=== PATIENT | female | born 1960 | race Caucasian/White ===

== ENCOUNTER 2019-04-25 00:49 | Outpatient (CLI) | payer BC, SELFPAY ==
--- NOTE | 2019-04-25 11:47 | DI.MAMMO_ITS ---
SYMPTOMS/DIAGNOSIS: SCREENING, Z12.31 MAMMOGRAMS: Mammograms were interpreted according to the usual protocol including computer analysis with CAD system, tomosynthesis and C view imaging. The breast tissue is heterogeneously radiodense, which lowers the sensitivity of the study. There is no dominant mass. There are no suspicious calcifications and there has been no significant interval change when compared with prior images. SUMMARY: No evidence of malignancy, category 1. Yearly screening mammography is recommended. Breast density category C. MQSA ASSESSMENT OF FINDINGS: Negative. Category 1. Patient will receive a letter notifying them of these results. Bi-RADS category C. The breasts are heterogeneously dense, which may obscure small masses.
== END 2019-04-25 01:09 ==
PROVIDERS: PCP Family Medicine; Visit Provider Family Medicine
DX: Z12.31 Encounter for screening mammogram for malignant neoplasm of breast (principal)
CPT/HCPCS: 77063; 77067

== ENCOUNTER 2020-01-30 02:20 | Outpatient (CLI) | payer BC, SELFPAY ==
[2020-01-30 09:47] LABS: Hemoglobin A1C 5.5 % (3.8-5.6)
[2020-01-30 13:41] LABS: Calculated LDL 116 mg/dL (<100); Cholesterol 212 mg/dL (<200); HDL Cholesterol 90 mg/dL (40-60); Triglyceride 30 mg/dL (<150)
== END 2020-01-30 02:40 ==
PROVIDERS: PCP Family Medicine; Visit Provider Family Medicine
DX: Z00.00 Encounter for general adult medical examination without abnormal findings (principal); E11.9 Type 2 diabetes mellitus without complications
CPT/HCPCS: 36415; 80061; 83036

== ENCOUNTER 2020-04-21 08:07 | Outpatient (CLI) | payer BC, SELFPAY ==
[2020-04-23 13:56] LABS: SARS-CoV-2 RNA Undetected (Undetected); SARS-CoV-2 Specimen Source Nasopharynx
== END 2020-04-21 08:27 ==
PROVIDERS: PCP Family Medicine; Visit Provider Family Medicine
DX: Z11.59 Encounter for screening for other viral diseases (principal)
CPT/HCPCS: U0003

== ENCOUNTER 2020-08-08 01:45 | Outpatient (CLI) | payer BC, SELFPAY ==
[2020-08-10 09:25] LABS: SARS-CoV-2 RNA Source Nasal/Nares
[2020-08-10 09:26] LABS: SARS-CoV-2 RNA Not Detected (NotDetected)
== END 2020-08-08 02:05 ==
PROVIDERS: PCP Family Medicine; Visit Provider Surgery
DX: Z11.59 Encounter for screening for other viral diseases (principal); Z01.818 Encounter for other preprocedural examination
CPT/HCPCS: U0003

== ENCOUNTER 2020-08-13 07:16 | Day surgery (SDC) | payer BC, SELFPAY ==
--- NOTE | 2020-08-13 07:12 | COLE_ITS ---
Date of service: 08/13/20 Time of Service: 09:10 Colonoscopy Report Date of procedure: 08/13/20 Pre-op diagnosis general: Colon Cancer Screening and family history Post-op diagnosis procedure note: other (polyp) Procedure: Colonoscopy with polypectomy Surgeon: Valencia Bauer Anesthesia proc note operative: other (General/ASA 2/Pina Mendes CRNA) Estimated blood loss (mL): 2 Pathology: other (Transverse polyp) Complications: None Disposition: same day Indications: The patient is here for Colonoscopy pre-op. She has a family history of colon cancer in her mother. She has not had any bowel habit changes. -Discussed colonoscopy bowel prep as well as the procedure. Discussed possible complications of the procedure to include bleeding, pain, perforation, missed small lesion/polyp, sore throat, aspiration and adverse reaction to the medications. Questions were answered to patient?s satisfaction. No guarantees were implied or given. Prep: Miralax/Dulcolax Procedure Start Time: 09:10 Procedure End Time: 09:32 Retraction Time: 16 minutes Findings: One small sessile polyp Procedure Description: After informed consent was obtained the patient was taken to the procedure room and placed in a left decubitous position. Monitors were applied and a time out was done. The patients name, date of , procedure, allergies to medications and metal in their body was reviewed. The patient was then sedated. Once sedated and comfortable a rectal exam was done. External exam was normal. Internal exam revealed a normal sphincter tone and no palpable masses. The scope was then introduced and retro-flexed. No internal hemorrhoids were identified. The scope was then advanced to the cecum without difficulty. The ileocecal valve and appendiceal orifice were identified. The prep was good. The scope was then slowly retracted over 16 minutes back into the rectum. One polyp was removed with cold forceps in the Transverse colon. The scope was removed and the patient was woken up and taken back to Same day surgery in s table condition. The patient tolerated the procedure well and there were no immediate complications. Follow up: The patient should follow up in 5 years unless they develop changes in bowel habits or other new gastrointestinal complaints.
--- NOTE | 2020-08-13 07:13 | W.PM.DSUDISC ---
Discharge Plan Disposition Patient Disposition: HOME Condition: Good Discharge Details Reason For Visit: colonoscopy Attending Provider: Valencia Bauer Primary Care Provider: Sheryl Lainez Home Meds and New Rx's Prescriptions: Continued cholecalciferol (vitamin D3) [Vitamin D3] 400 UNIT tablet 400 unit PO DAILY RF: 0 magnesium citrate 100 MG tablet 400 mg PO DAILY RF: 0 Zyflamend 1 cap PO DAILY RF: 0 Zyflamend 1 cap PO HS RF: 0 docosahexaenoic acid-epa Capsule 1 cap PO DAILY RF: 0 Discontinued polyethylene glycol 3350 17 gram/dose powder 238 g PO ONCE Qty: 238 RF: 0 bisacodyl [Dulcolax (bisacodyl)] 5 mg tablet,delayed release (DR/EC) 5 mg PO ONCE Qty: 4 RF: 0 Discharge Instructions Additional Instructions: Findings: One small polyp Follow up: depends on final pathology. Most likely 5 years Please call if you develop: fevers >101.5 Nausea or Vomiting Abdominal pain that is not transient DAY SURGERY UNIT POST ENDOSCOPY INSTRUCTIONS 1. Because there will be medication in your system for the next 24 hours, you may feel a little sleepy. Your coordination will be affected. Therefore: a. Do not drive or operate dangerous equipment for 24 hours. b. Do not drink alcohol beverages for 24 hours (not even beer). c. Plan to go home and rest for the day. 2. Generally there are no restrictions on your activity after a day or so has gone by, but you may feel a bit fatigued for a few days. 3 After you arrive home you may have a light meal and return to a normal diet as you can tolerate it without feeling sick to your stomach. 4. After surgery, you may feel pain or discomfort. This should be only transient, but if it persists please contact your doctor. 5. If there are any questions regarding the findings of your procedure, please feel free to contact your doctor. 6. If you are unable to contact your doctor with a problem, contact the hospital at [phone]. 7. Continue all your regular medications unless directed otherwise. I understand the above instructions and have no questions. Signature of Patient or Responsible Adult Escort Date/Time Name of Responsible Adult Escort Signature of Nurse Date/Time Activity:: Activity as Tolerated Diet:: As Tolerated Discharge Orders Discharge Orders: Discharge Order (Routine); Ordered 08/13/20 Ordered By: Valencia Bauer
[2020-08-13 07:28] VITALS: BP 111/72; PULSE 53; RESP 16; TEMP 36.2; O2SAT 98
[2020-08-13] MEDS: Lactated Ringers 1,000 ML 80 ML IV (08:00)
--- NOTE | 2020-08-13 09:27 | BOWEL_PTH ---
PATIENT: Ambar Donaldson LOC: [facility] U#:[id number] AGE/SX: 59/F ROOM: RE08/13/[address]: Valencia Bauer MD : 1960 BED: DIS: 08/13/2020 SPEC #: [id number] RECD: 08/13/20 12:26 STATUS: CARA REQ #: [id number] STEPHEN: 08/13/20 09:[address]: Valencia Bauer DEPT: Surgical Specimen RECD BY: Elinor Byrnes ENTERED: 08/13/20 12:27 SP TYPE: Bowel OTHR DR: Sheryl Lainez MD, DC Tissues: 1 - BIOPSY BOWEL Procedures: GROSS AND MICRO LEVEL 4 Comments: [id number] ([id number] [facility] [place]#)
[2020-08-13 10:13] VITALS: BP 105/62; PULSE 49; RESP 16; TEMP 36.3; O2SAT 100
== END 2020-08-13 10:35 | disposition home or self-care (01) ==
LOC: SUR 07:17
PROVIDERS: PCP Family Medicine; Visit Provider Surgery
PROC: 0DJD8ZZ Inspection of Lower Intestinal Tract, Via Natural or Artificial Opening Endoscopic (ICD-10-PCS; CPT 45378; principal; 2020-08-13 08:30)
DX: Z12.11 Encounter for screening for malignant neoplasm of colon (principal); D12.3 Benign neoplasm of transverse colon; Z80.0 Family history of malignant neoplasm of digestive organs
CPT/HCPCS: 45380; 88305; J2001

== ENCOUNTER 2020-09-02 01:45 | Outpatient (CLI) | payer BC, SELFPAY ==
--- NOTE | 2020-09-02 07:45 | DI.RAD_ITS ---
EXAM: XR SHOULDER RT COMPLETE 2+V CLINICAL HISTORY: RT SHOULDER PAIN,M25.519 TECHNIQUE: COMPARISON: No exams were available for comparison FINDINGS: Five views were obtained. There is slight narrowing of the cartilaginous joint space of the glenohumeral joint. There are mild inferior marginal osteophytes glenoid and humeral head. There are mild hypertrophic degenerative ch anges at the acromioclavicular joint as well. No other significant abnormality seen. IMPRESSION: Degenerative changes of glenohumeral and acromioclavicular joints as described above. RADIATION DOSE DELIVERED: Total DLP Total DLP
== END 2020-09-02 02:05 ==
PROVIDERS: PCP Family Medicine; Visit Provider Family Medicine
DX: M25.511 Pain in right shoulder (principal); M19.011 Primary osteoarthritis, right shoulder
CPT/HCPCS: 73030

== ENCOUNTER 2020-10-20 01:54 | Outpatient (CLI) | payer BC, SELFPAY ==
--- NOTE | 2020-10-20 07:45 | DI.MAMMO_ITS ---
EXAM: MG MAMMO SCREENING CLINICAL HISTORY: screening,Z12.39. TECHNIQUE: Bilateral full field digital CC and MLO mammographic images were obtained with 3D tomosyn thesis and utilizing computer aided detection (CAD). COMPARISON: Prior mammograms dating back to 2011, the most recent being March 2019. Left breast ultr asound performed April 2016 was reviewed. Her sister was diagnosed with premenopausal breast cancer . FINDINGS: Fibroglandular tissue is moderately dense. There are no CAD designations. No new spiculated masses nor malignant-appearing microcalcification groups in either breast. There is no significant architectural distortion nor skin thickening-retraction. IMPRESSION: No radiographic evidence of malignancy. BI-RADS Category 1 - Negative Breast Density - Category C - Heterogeneously dense Breast density Category C or D implies that the patient has dense breast tissue. Dense breast tissue can make it harder to find cancer on a mammogram. Dense breast tissue is also associated with an incr eased risk of breast cancer. This information about the result of the mammogram report was provided to the patient to raise their awareness. Use this report when you speak with the patient about their risks for breast cancer, which includes their family history. At that time, you may recommend additional screening tests (Ultrasoun d or MRI) as these tests may add significant information. A negative radiographic report should not delay biopsy if a dominant or clinically suspicious mass is present. Up to ten percent of cancers are not identified on mammography. A negative report may reinforce clinical impression. Adenosis and dense breasts may obscure an underlying neoplasm. False positive reports average 6 to 10%. Patient will receive a letter notifying them of these results.
== END 2020-10-20 02:14 ==
PROVIDERS: PCP Family Medicine; Visit Provider Family Medicine
DX: Z12.31 Encounter for screening mammogram for malignant neoplasm of breast (principal)
CPT/HCPCS: 77063; 77067

== ENCOUNTER 2021-06-23 01:46 | Outpatient (CLI) | payer BC, SELFPAY ==
--- NOTE | 2021-06-23 07:45 | DI.RAD_ITS ---
Exam(s) XR CHEST 2V PA LATERAL EXAM: XR CHEST 2V PA LATERAL CLINICAL HISTORY: right chest congestion,ASTHMA,J45.909,R09.89 TECHNIQUE: 2D digital imaging was performed of the chest. Two images were obtained. PA and lateral views were obtained. COMPARISON: No exams were available for comparison FINDINGS: MEDIASTINUM: Normal. HEART: Normal. PULMONARY VASCULATURE: Normal. LUNGS: Clear. PLEURAL SPACE: No pleural effusion or pneumothorax. BONE:Within normal limits for the patient's age. There is a mild left convex scoliosis of the lower thoracic and upper lumbar spine. OTHER FINDINGS:Normal. IMPRESSION: No acute pulmonary findings. DATA REPOSITORY: RADIATION DOSE DELIVERED:
== END 2021-06-23 02:06 ==
PROVIDERS: PCP Family Medicine; Visit Provider Family Medicine
DX: J45.909 Unspecified asthma, uncomplicated (principal); R09.89 Other specified symptoms and signs involving the circulatory and respiratory systems
CPT/HCPCS: 71046

== ENCOUNTER → 2022-06-21 01:42 | Outpatient (CLI) | payer BC, SELFPAY ==
--- NOTE | 2022-06-21 14:15 | DI.MAMMO_ITS ---
Exam(s) MAMMO SCREENING EXAM: MAMMO SCREENING CLINICAL HISTORY: screening,z12.39 TECHNIQUE: Mammograms were interpreted according to the usual protocol including computer analysis w [employer] CAD system, tomosynthesis and C-view imaging. COMPARISON: 2012 through 2020 FINDINGS: The breasts are composed of heterogeneously dense fibroglandular densities, Breast Density category C . No suspicious masses or suspicious microcalcifications are seen. No skin thickening or abnormal axillary lymph nodes are seen. There has been no significant change from prior exams. IMPRESSION: BI-RADS Category 1, Negative mammogram. Yearly screening mammography is recommended. Breast Density Category C, heterogeneously Dense. The mammogram demonstrates the patient's breast tissue is dense. Dense breast tissue is very common a nd is not abnormal but dense breast tissue can make it harder to find cancer on a mammogram. Also, de nse breast tissue may increase breast cancer risk. This information about the result of the mammogram report was provided to the patient to raise their awareness. Use this report when you speak with the patient about their risks for breast cancer, which includes their family history. At that time, you may recommend additional screening tests (Ultrasound or MRI) as they might be useful based on their r isk. A negative radiographic report should not delay biopsy if a dominant or clinically suspicious mass is present. Up to ten percent of cancers are not identified on mammography. A negative report may reinforce clinical impression. Adenosis and dense breasts may obscure an underlying neoplasm. False positive reports average 6 to 10%.
== END ==
PROVIDERS: PCP Family Medicine; Visit Provider Family Medicine
DX: Z12.31 Encounter for screening mammogram for malignant neoplasm of breast (principal); R92.8 Other abnormal and inconclusive findings on diagnostic imaging of breast
CPT/HCPCS: 77063; 77067

== ENCOUNTER 2022-06-24 13:27 | Outpatient (REF) | payer BC, SELFPAY ==
--- NOTE | 2022-06-24 10:45 | PAPFT_PTH ---
PATIENT: Ambar Donaldson LOC: [facility] U#:[id number] AGE/SX: 61/F ROOM: RE06/24/[address]: Sheryl Lainez MD, DC : 1960 BED: DIS: 06/24/2022 SPEC #: [id number] RECD: 06/24/22 17:52 STATUS: KATEPrecious REQ #: [id number] STEPHEN: 06/24/22 10:[address]: Sheryl Lainez DEPT: [facility] Cytology RECD BY: Elinor Byrnes Tissues: 1 - CX/ENDOCX FOR PAP SMEARS Procedures: PAP THIN PREP/UVM Screening HPV DNA PROBE Comments: [id number]
== END 2022-06-24 13:28 | disposition home or self-care (01) ==
LOC: LBN 13:27
PROVIDERS: PCP Family Medicine; Visit Provider Family Medicine
DX: Z12.4 Encounter for screening for malignant neoplasm of cervix (principal); Z11.51 Encounter for screening for human papillomavirus (HPV)
CPT/HCPCS: 88142; 87624

== ENCOUNTER → 2023-08-24 01:29 | Outpatient (CLI) | payer BC, SELFPAY ==
--- NOTE | 2023-08-24 08:30 | DI.DEXA_ITS ---
Exam(s) XR DEXA BONE DENSITY W/WO HIRA EXAM: XR DEXA BONE DENSITY W/WO HIRA CLINICAL HISTORY: post menopausal, asymptomatic menopausal state, screening, Z78.0 TECHNIQUE: COMPARISON: No exams were available for comparison FINDINGS: Lateral Spine Image: Unremarkable. No compression deformities identified. Left hip: Total T-Score: -2.3 Total Z-Score: -1.1 T- and Z-scores: Findings are consistent with osteopenia. Lumbar Spine: Total T-Score: -0.8 Total Z-Score: 1.0 T- and Z-scores: Within normal limits. Note is made of osteoporosis in the left forearm with a total T-score of -4.2 and Z-score of -2.6. IMPRESSION: Osteoporosis in the left forearm.
== END ==
PROVIDERS: PCP Family Medicine; Visit Provider Family Medicine
DX: Z78.0 Asymptomatic menopausal state (principal); Z13.820 Encounter for screening for osteoporosis
CPT/HCPCS: 77080

== ENCOUNTER → 2023-08-31 01:17 | Outpatient (CLI) | payer BC, SELFPAY ==
--- NOTE | 2023-08-31 07:30 | DI.MAMMO_ITS ---
Exam(s) MAMMO SCREENING EXAM: MAMMO SCREENING CLINICAL HISTORY: screening,z12.39. TECHNIQUE: Bilateral full field digital CC and MLO mammographic images were obtained with 3D tomosyn thesis and utilizing computer aided detection (CAD). COMPARISON: Prior mammograms were reviewed. FINDINGS: There has been no significant change in the appearance and distribution of the fibroglandular tissue. There are no new spiculated masses nor malignant appearing microcalcification groups. There is no significant architectural distortion nor skin thickening-retraction. IMPRESSION: No radiographic evidence of malignancy. BI-RADS Category 1 - Negative Breast Density - Category C - Heterogeneously dense Breast density Category C or D implies that the patient has dense breast tissue. Dense breast tissue can make it harder to find cancer on a mammogram. Dense breast tissue is also associated with an incr eased risk of breast cancer. This information about the result of the mammogram report was provided to the patient to raise their awareness. Use this report when you speak with the patient about their risks for breast cancer, which includes their family history. At that time, you may recommend additional screening tests (Ultrasoun d or MRI) as these tests may add significant information. A negative radiographic report should not delay biopsy if a dominant or clinically suspicious mass is present. Up to ten percent of cancers are not identified on mammography. A negative report may reinforce clinical impression. Adenosis and dense breasts may obscure an underlying neoplasm. False positive reports average 6 to 10%. Patient will receive a letter notifying them of these results.
== END ==
PROVIDERS: PCP Family Medicine; Visit Provider Family Medicine
DX: Z12.31 Encounter for screening mammogram for malignant neoplasm of breast (principal)
CPT/HCPCS: 77063; 77067

== ENCOUNTER 2023-09-01 04:35 | Outpatient (CLI) | payer BC, SELFPAY ==
[2023-09-01 12:42] LABS: ALT 18 U/L (14-59); AST 32 U/L (15-37); Albumin 3.7 g/dL (3.4-5.0); Alkaline Phosphatase 82 U/L (46-116); Anion Gap 8.4 mmol/L (3-11); BUN 9 mg/dL (7-18); Bilirubin, Total 0.4 mg/dL (0.2-1.0); CO2 28.6 mmol/L (21.0-32.0); CREATININE 0.7 mg/dL (0.55-1.02); Chloride 101 mmol/L (98-107); Estimated GFR 96.52 (mL/min/1.73m2); Glucose 92 mg/dL (74-106); Potassium 3.7 mmol/L (3.5-5.1); Sodium 138 mmol/L (136-145); TSH (W/Ref FT4) 1.81 uIU/mL (0.36-3.74); Total Protein 7.1 g/dL (6.4-8.2)
[2023-09-01 12:55] LABS: Vitamin D 25 Total 53.1 ng/mL (30-100)
[2023-09-01 19:27] LABS: Parathyroid Hormone,Intact 34 pg/mL (19-88)
== END 2023-09-01 04:36 | disposition home or self-care (01) ==
LOC: LOS 04:35
PROVIDERS: PCP Family Medicine; Visit Provider Family Medicine
DX: M81.0 Age-related osteoporosis without current pathological fracture (principal)
CPT/HCPCS: 36415; 80053; 82306; 83970; 84100; 84443

== ENCOUNTER 2023-09-02 15:57 | Outpatient (REF) | payer BC, SELFPAY ==
[2023-09-02 13:22] LABS: Total Volume 3500 ml
[2023-09-03 12:28] LABS: Calcium Urine 4.5 mg/dL (See Note); Calcium Urine 24 hr 158 mg/24hr (100-300); Timed Urine Volume 3500 mL
== END 2023-09-02 15:58 | disposition home or self-care (01) ==
LOC: LBN 15:57
PROVIDERS: PCP Family Medicine; Visit Provider Family Medicine
DX: M81.0 Age-related osteoporosis without current pathological fracture (principal)
CPT/HCPCS: 81050; 82340; 82570

== ENCOUNTER 2024-09-03 01:34 | Outpatient (CLI) | payer MEDICARE, SELFPAY ==
--- NOTE | 2024-09-03 06:15 | DI.MAMMO_ITS ---
Exam(s) MAMMO SCREENING EXAM: MAMMO SCREENING CLINICAL HISTORY: screening,z12.39. TECHNIQUE: Bilateral full field digital CC and MLO mammographic images were obtained with 3D tomosyn thesis and utilizing computer aided detection (CAD). COMPARISON: Prior mammograms were reviewed. FINDINGS: There has been no significant change in the appearance and distribution of the fibroglandular tissue. There are no CAD designations. There are no new spiculated masses nor malignant appearing microcalcification groups. There is no significant architectural distortion nor skin thickening-retraction. IMPRESSION: No radiographic evidence of malignancy. BI-RADS Category 1 - Negative Breast Density - Category C - Heterogeneously dense Breast density Category C or D implies that the patient has dense breast tissue. Dense breast tissue can make it harder to find cancer on a mammogram. Dense breast tissue is also associated with an incr eased risk of breast cancer. This information about the result of the mammogram report was provided to the patient to raise their awareness. Use this report when you speak with the patient about their risks for breast cancer, which includes their family history. At that time, you may recommend additional screening tests (Ultrasoun d or MRI) as these tests may add significant information. A negative radiographic report should not delay biopsy if a dominant or clinically suspicious mass is present. Up to ten percent of cancers are not identified on mammography. A negative report may reinforce clinical impression. Adenosis and dense breasts may obscure an underlying neoplasm. False positive reports average 6 to 10%. Patient will receive a letter notifying them of these results.
== END 2024-09-03 01:54 ==
LOC: DI 01:35
PROVIDERS: PCP Family Medicine; Visit Provider Family Medicine
DX: Z12.31 Encounter for screening mammogram for malignant neoplasm of breast (principal); R92.333 Mammographic heterogeneous density, bilateral breasts
CPT/HCPCS: 77063; 77067

== ENCOUNTER 2025-07-11 05:54 | Outpatient (CLI) | payer MEDICARE, SELFPAY ==
--- NOTE | 2025-07-11 08:00 | DI.US_ITS ---
Exam(s) US SOFT TISS ABD WALL/LOW BACK EXAM: US SOFT TISS ABD WALL/LOW BACK CLINICAL HISTORY: worsening pain - lipoma lt lateral directlu under ribs,d17.9. TECHNIQUE: Ultrasound was performed using standard protocol. COMPARISON: No exams were available for comparison FINDINGS: Sonographic assessment utilizing grayscale and color Doppler imaging was performed and targeted to the area of clinical concern left letitia region below the ribs.. The palpable abnormality corresponds to a homogeneous circumscribed 2 lesion measuring 1.2 x 0.7 x 3.0 cm. Findings are consistent with a simple lipoma. No suspicious features. IMPRESSION: 3 centimeter lipoma noted beneath the left ribs. No suspicious findings. DATA REPOSITORY:
== END 2025-07-11 06:14 ==
LOC: DI 05:55
PROVIDERS: PCP Family Medicine; Visit Provider Nurse Practitioner Family
DX: D17.9 Benign lipomatous neoplasm, unspecified (principal)
CPT/HCPCS: 76705

== ENCOUNTER → 2025-07-25 08:55 | Outpatient (BNVA) | payer MEDICARE, SELFPAY | PROVIDERS: PCP Family Medicine; Referring Provider Family Medicine; Visit Provider Surgery | DX: D17.9 Benign lipomatous neoplasm, unspecified (principal) | CPT/HCPCS: 99213 ==

== ENCOUNTER 2025-08-27 08:28 | Day surgery (SDC) | payer MEDICARE, SELFPAY ==
--- NOTE | 2025-08-26 17:55 | W.PREOPHP ---
Assessment and Plan Assessment and plan (1) Lipoma: Status: Acute Assessment and plan: We reviewed the plan for excision and primary closure of the lipoma from the left flank. We marked this together today, Ambar had the chance to ask any other new questions. We can proceed with lipoma excision as planned. History of Present Illness History of Present Illness Chief Complaint: Lipoma Narrative: Ambar is 64 years old, she is referred for excision of a lipoma from the left flank. She tells me that she is known about it for decades, has a similar 1 on her left thigh. Both of generally been fairly stable through the years, although she does think that the flank lesion feels a little more dense compared to years prior. More concerning to her, however, his discomfort this been associated with this. She noticed it when she inherited a new car. She had pain in the area of her lower back and flank after driving the car. She is tried to change positions multiple times, but has not enjoyed any success. She had a similar experience during airline travel. She does exercise quite a bit, and stretch the area, but it continues to be bothersome. She underwent an ultrasound that confirmed the presence of a benign appearing lipoma measuring approximately 3 cm in its longest dimension. 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 Brother Stroke Brother Asthma Maternal Grandfather Stroke Paternal Grandfather No problems noted. Maternal Grandmother No problems noted. Paternal Grandmother No problems noted. Social History (Updated 07/31/24 @ 12:33 by Apple Shelby) Smoking/Tobacco Use Status: Former Tobacco Use tobacco type: cigarettes Quit Date: 09/26/78 Tobacco: How many years used: 5 Quit status: quit date established Second Hand Exposure: Yes (BOTH PARENTS SMOKED) Smoking risk assessment performed?: Yes Alcohol Intake: current Alcohol Intake frequency: a few times a week Alcohol type: beer Drug use: Occasionally Substance use type: marijuana Caregiver/Support person: No Household members: significant other Housing: house Communication Needs: None Do you need help understanding health information?: Rarely current occupation: [employer] Pets and animals: No Sexually active: No Do you think of yourself as: straight/heterosexual Current gender identity: female What is your relationship status?: living with partner How often do you talk on the phone with friends or family?: three or more times per week How often do you get together with friends or relatives?: once per week How often do you attend samaritan or amish services?: 1-3 times per year Do you belong to any clubs or organized social groups?: yes Panel score (0-1 are the most socially isolated patients): 3 What type of physical activity do you participate in: walking and bicycling Duration: 30-45 minutes/day Frequency: 5-6 times per week Bryanna/Sabianist: OTHER Special bryanna needs: No Seatbelt use: always Helmet use: Yes Helmet use: always Drive intox or ride w/intox sales driver: No Do you feel safe at home: Yes Do you feel safe in your relationship?: Yes Meds Allergies and Home Medications Allergies Allergy/AdvReac Type Severity Reaction Status Date / Time doxycycline Allergy Intermediate Unknown Verified 08/27/25 08:50 amoxicillin Allergy Unknown Hives Verified 08/27/25 08:50 Home Medications ?Medication ?Instructions ?Recorded ?Confirmed ?Type magnesium citrate 100 mg tablet 400 mg PO DAILY 01/21/15 08/27/25 History Zyflamend 1 cap PO BID 06/27/23 08/27/25 History ascorbic acid (vitamin C) 1,000 mg 1 g PO DAILY 06/27/23 08/27/25 History tablet vitamin A-C-D3-cod liver oil 4,000 1 tab PO DAILY 08/26/25 08/27/25 History unit-50 mg-200 unit chewable tablet Exam Const General: cooperative, healthy appearing and not in acute distress Neck Neck: normal visual inspection, no lymphadenopathy and supple Resp Effort & Inspection: normal respiratory effort Auscultation: clear to auscultation bilaterally Cardio Jugular venous pressure: no JVD Rate: regular rate Rhythm: regular rhythm Heart Sounds: S1 normal and S2 normal GI Inspection: normal to inspection Palpation: soft, no guarding, no hernias and nontender Percussion: normal to percussion Auscultation: normal bowel sounds Neuro General: patient alert, patient awake and patient oriented x3 Psych Appearance: grossly normal
--- NOTE | 2025-08-26 17:56 | W.PM.DSUDISC ---
Date of service: 08/27/25 Discharge Plan Disposition Patient Disposition: Home Condition: Good Discharge Details Reason For Visit: Lipoma excision Attending Provider: El Tyson Primary Care Provider: Sheryl Lainez Home Meds and New Rx's Prescriptions: Continued ascorbic acid (vitamin C) 1,000 mg tablet 1 g PO DAILY magnesium citrate 100 MG tablet 400 mg PO DAILY Zyflamend 1 cap PO BID Patient Comments: Radha, Tumeric, jan, basil, green tea, [place], Gold[place], barberry, oregano, scullcap. vitamin A-C-D3-cod liver oil 4,000-50-200 [id number] tablet,chewable 1 tab PO DAILY Discharge Instructions Additional Instructions: Ambar, was great seeing you today, and I hope you feel well after the procedure. Things went very smoothly. I removed a small lipoma from the area of concern, that is congruent with what was seen on the ultrasound. All of the features are totally consistent with a benign lipoma. As we discussed beforehand, there are 2 layers of stitches closing the skin up, and I hope this will give you any trouble at all. I used a long-acting anesthetic to help provide some relief after the operation. Using Tylenol and ibuprofen over the next few days, as well as ice packs will also help with pain after surgery. Expect to get some bruising around the incision. That is extremely common and nothing to worry about. I would like you to be up and moving around a little bit each day after this. As I mentioned, a little bit of basic physical activity, and easy stretching across the area is fine. Just be careful with vigorous twisting across your abdomen. Beginning tomorrow, you should remove the bandages, and wash the incision with warm soapy water. You are free to replace the Band-Aid if you find that comfortable, but if the incision feels fine, it is not at all bothersome, then it does not need to be covered. If you need anything at all, please do not hesitate to call, otherwise we look forward to seeing you at your follow-up visit. 1. Resume all of your regular regular medications. 2. Use ice packs over the incision to help with pain and swelling after surgery. 3. Alternate over the counter tylenol and ibuprofen every 6 hours for the first 2 days, then use as needed. 4. Leave bandage in place for 24 hours, then remove. 5. Shower with warm soapy water. Pat dry. Feel free to replace a bandaide if you find that most comfortable. 6. No soaking or tub baths until I see you in the office. 7. No heavy lifting until I see you in the office. 8. Call the office (or go directly to the emergency room after hours) if you notice any of the following: Develop chills (warm to touch), or if you have a thermometer and your temperature is above 101 Difficulty breathing or difficultly swallowing Persistent vomiting Any bleeding ? exceeding one tablespoon 9. Call your physician if the site where your intravenous was started becomes red, swollen, painful, and warm to touch. Stand Alone Forms: Anesthesia Discharge Inst[facility] ([facility]), Portal Information Referrals: El Tyson MD [ [facility] STAFF PHYSICIAN, Surgery] - 09/09/25 11:00 am Activity:: Activity as Tolerated Remove Dressings/Wound Care:: 24 hours Shower/Bathe:: 24 hours Diet:: As Tolerated Discharge Orders Discharge Orders: Discharge Order (Routine); Ordered 08/26/25 Ordered By: El Tyson DS: Diagnosis Discharge Diagnosis (1) Lipoma: Status: Acute
--- NOTE | 2025-08-26 18:01 | ROE_ITS ---
Operative Note Operative Note PRE-OP DIAGNOSIS: Lipoma POST-OP DIAGNOSIS: same PROCEDURE: Exicision and closure of lipoma SURGEON: El Tyson ELECTRONIC WARFARE LINGUIST: Vanesa Hernandez ANESTHESIA TYPE: Local By Surgeon Refer to Anesthesia Record ESTIMATED BLOOD LOSS: 10 PATHOLOGY: none sent COMPLICATIONS: None Patient was transported to: PACU Patient's condition: stable Indications: Ambar is a 64-year-old woman with a symptomatic lipoma on the left flank Findings: Approximately 1 cm x 3 cm x 1 cm lipoma Procedure Description: I met with Ambar in the preoperative area, and we reviewed the plan for excision of the lipoma today. We marked the area together. We then moved back to the operating room. She was left on the stretcher, and assisted to the right lateral decubitus position. Anesthesia was initiated, and once she was comfortable, the area was prepped and draped. I established a generous field bl ock using local anesthetic mixed with Exparel. Next, I made an incision over the long axis of the mass. I dissected down into the subcutaneous fat, where I encountered a well encapsulated lipoma. Gentle blunt dissection was used in combination with some sharp dissection to separate the surrounding fat. Once the lipoma was completely dissected free, it was removed from the wound bed. It was irrigated. It was all hemostatic, and the surrounding tissue all appeared consistent with normal subcutaneous fat. The deeper portion of the pocket was reapproximated with interrupted 2-0 Vicryl stitches, and the skin was closed with a running subcuticular stitch. A bandage was applied, Ambar was allowed to awaken from the anesthetic and transferred to the day surgery unit. Date of Procedure: 08/27/25
[2025-08-27 08:52] VITALS: BP 114/77; PULSE 46; RESP 16; TEMP 36.2; O2SAT 100
[2025-08-27] MEDS: Lactated Ringers 1,000 ML 80 ML IV (09:01)
[2025-08-27] MEDS: Gabapentin 300 MG CAP 600 MG PO (09:06)
[2025-08-27] MEDS: Acetaminophen 500 MG TAB 1000 MG PO (09:06)
[2025-08-27] MEDS: Celecoxib 200 MG CAP PO (09:06)
--- NOTE | 2025-08-27 09:32 | W.ANESPRE ---
General Info Date of Service Date Performed: 08/27/25 Height: 5 ft 5 in Weight: 55.2 kg Body Mass Index (BMI): 20.2 Surgical Procedure: Operation Date: 08/27/25 10:40 Proposed Procedure Side Surgeon p Excision and Closure of Lipoma Lt Flank Left El Tyson MD Meds Allergies and Home Medications Allergies Allergy/AdvReac Type Severity Reaction Status Date / Time doxycycline Allergy Intermediate Unknown Verified 08/27/25 08:50 amoxicillin Allergy Unknown Hives Verified 08/27/25 08:50 Home Medication ?Medication ?Instructions ?Recorded magnesium citrate 100 mg tablet 400 mg PO DAILY 01/21/15 Zyflamend 1 cap PO BID 06/27/23 ascorbic acid (vitamin C) 1,000 mg 1 g PO DAILY 06/27/23 tablet vitamin A-C-D3-cod liver oil 4,000 1 tab PO DAILY 08/26/25 unit-50 mg-200 unit chewable tablet Current Visit Medications: Current Medications Generic Name Dose Route Start Last Admin Trade Name Freq PRN Reason Stop Dose Admin Acetaminophen 1,000 mg 08/27/25 06:00 08/27/25 09:06 Acetaminophen 500 Mg Tab PO 08/27/25 23:59 1,000 mg PREOP FRANTZ Administration Celecoxib 200 mg 08/27/25 06:00 08/27/25 09:06 Celecoxib 200 Mg Cap PO 08/27/25 23:59 200 mg PREOP FRANTZ Administration Gabapentin 600 mg 08/27/25 06:00 08/27/25 09:06 Gabapentin 300 Mg Cap PO 08/27/25 23:59 600 mg PREOP FRANTZ Administration Hydromorphone HCl 0.2 mg 08/26/25 17:55 Hydromorphone 2 Mg/Ml Syr IVP 09/25/25 17:54 Q1H PRN PRN Ringer's Solution 1,000 mls @ 80 mls/hr 08/27/25 06:00 08/27/25 09:01 IV 08/27/25 23:59 80 mls/hr INFUSION FRANTZ Administration Sodium Chloride 0 ml 08/27/25 06:00 Normal Saline Flush 10 Ml Syr IV 08/27/25 23:59 PRN PRN Sodium Chloride 0 ml 08/27/25 06:00 Normal Saline 10 Ml Vial IJ 08/27/25 23:59 DIRECTED PRN Sterile Water 0 ml 08/27/25 06:00 Water,Injection,Sterile 10 Ml Vial IJ 08/27/25 23:59 DIRECTED PRN Tramadol HCl 50 mg 08/26/25 17:55 Tramadol 50 Mg Tab PO 09/25/25 17:54 Q6H PRN PRN Pain PFSH Active Problems Active Problems: Problem Status Onset Code Lipoma Acute D17.9 Postnasal drip Acute R09.82 Oral lesion Acute K13.70 Painful mouth Acute K13.79 Mouth disorder Acute Chest congestion Acute R09.89 Asthma Chronic J45.909 Tubular adenoma of colon Acute D12.6 Shoulder pain Acute M25.519 Shoulder pain Acute M25.519 Back pain Acute M54.9 Annual physical exam Acute Z00.00 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 Tobacco Smoking/Tobacco Use Status: Former Tobacco Use Passive smoking exposure: Yes (through childhood) Second hand exposure: Yes (BOTH PARENTS SMOKED) Alcohol Alcohol Intake: current Alcohol intake frequency: a few times a week Alcohol type: beer Substance Use Substance use: Occasionally Substance use type: marijuana Vital Signs and Lab Results Vital Signs Most Recent Vital Signs in EMR: Most Recent Vital Signs Temp Pulse Resp BP Pulse Ox 36.2 C L 46 L 16 114/77 100 08/27/25 08:52 08/27/25 08:52 08/27/25 08:52 08/27/25 08:52 08/27/25 08:52 Anesthesia Assessment and Plan Anesthesia History Personal History: No History of Anesthesia Complications Family History: No Family History of Anesthesia Complications Exercise Tolerance Exercise Tolerance: Metabolic Equivalents>4 Pertinent Negatives Pertinent Negatives: No Symptoms of GERD, No Major Cardiovascular Symptoms or Complaints and No Major Pulmonary Symptoms or Complaints Cardiac & Pulmonary Exam Cardiac Exam: Normal S1/S2 Heart Sounds Pulmonary Exam: Clear Bilateral Breath Sounds Implantable Cardiac Device Does patient have a Pacemaker or an ICD?: No Airway Exam Known Difficult Airway: No Mallampati Class: 1 Mouth Opening: Normal (> 3cm) Thyromental Distance: Greater than 3 cm Neck Range of Motion: Full ROM Neck Circumference: Normal Teeth Condition: Normal Dentition ASA Classification ASA Score: ASA 2 Emergency Case?: No NPO Status NPO Status: NPO Clears >2 hours, Solids >8 hours Anesthesia Plan Resuscitation Status: Full Code Anesthesia Technique: General Anesthesia Airway Planned: Natural Airway Monitors Used: Standard Monitors
[2025-08-27 09:45] VITALS: BMI 20.2
[2025-08-27] MEDS: Bupivacaine 0.5% Pres-Free 30 ML VIAL (11:15)
[2025-08-27] MEDS: Bupivacaine LIPOSOME/PF 133 MG/10 ML VIAL IJ (11:16)
[2025-08-27 11:41] VITALS: BP 88/51; PULSE 57; RESP 16; TEMP 35.9; O2SAT 99
[2025-08-27 12:13] VITALS: BP 98/63; PULSE 51; RESP 14; TEMP 36.2; O2SAT 99
--- NOTE | 2025-08-27 13:21 | W.ANESPOSTOP ---
Postoperative Evaluation Date, Time and Location Date Performed: 08/27/25 Time Performed: 13:21 Patient Location: Day Surgery Unit Vital Signs Most Recent Imported Vital Signs: Most Recent Vital Signs Temp Pulse Resp BP Pulse Ox 36.2 C L 51 L 14 98/63 L 99 08/27/25 12:13 08/27/25 12:13 08/27/25 12:13 08/27/25 12:13 08/27/25 12:13 Pain Score Most Recent Pain Score: Most Recent Pain Score Pain Level 0 08/27/25 12:13 Assessment Mental Status: Awake (Alert & Oriented to Patient Baseline) Airway and Respiratory Function: Patent airway with normal (patient baseline) respiratory exam Cardiovascular Function: Hemodynamically Stable Hydration Status: Adequately Hydrated Nausea & Vomiting: No Nausea or Vomiting Pain: Pt. Denies Any Pain Peripheral Nerve Block: Patient did not receive a nerve block
== END 2025-08-27 13:03 | disposition home or self-care (01) ==
PROVIDERS: PCP Family Medicine; Visit Provider Surgery
PROC: (CPT 11403; principal; 2025-08-27 10:30)
DX: D17.1 Benign lipomatous neoplasm of skin and subcutaneous tissue of trunk (principal)
CPT/HCPCS: 11403; 12032; J0665; J0666; J2250; J2704; J3010

== ENCOUNTER → 2025-09-04 00:04 | Outpatient (CLI) | payer MEDICARE, SELFPAY ==
--- NOTE | 2025-09-04 09:03 | DI.MAMMO_ITS ---
Exam(s) MAMMO SCREENING EXAM: MAMMO SCREENING CLINICAL HISTORY: screening,Z12.39. TECHNIQUE: Bilateral full field digital CC and MLO mammographic images were obtained with 3D tomosynthesis and utilizing computer aided detection (CAD). COMPARISON: Prior mammograms were reviewed. FINDINGS: There has been no significant change in the appearance and distribution of the fibroglandular tissue. There are no new spiculated masses nor malignant appearing microcalcification groups. There is no significant architectural distortion nor skin thickening-retraction. IMPRESSION: No radiographic evidence of malignancy. BI-RADS Category 1 - Negative Breast Density - Category C - The breast are heterogeneously dense, which may obscure small masses. Breast density Category C or D implies that the patient has dense breast tissue. Dense breast tissue can make it harder to find cancer on a mammogram. Dense breast tissue is also associated with an increased risk of breast cancer. This information about the result of the mammogram report was provided to the patient to raise their awareness. Use this report when you speak with the patient about their risks for breast cancer, which includes their family history. At that time, you may recommend additional screening tests (Ultrasound or MRI) as these tests may add significant information. A negative radiographic report should not delay biopsy if a dominant or clinically suspicious mass is present. Up to ten percent of cancers are not identified on mammography. A negative report may reinforce clinical impression. Adenosis and dense breasts may obscure an underlying neoplasm. False positive reports average 6 to 10%. Patient will receive a letter notifying them of these results.
== END ==
LOC: DI 00:04
PROVIDERS: PCP Family Medicine; Visit Provider Family Medicine
DX: Z12.31 Encounter for screening mammogram for malignant neoplasm of breast (principal); R92.323 Mammographic fibroglandular density, bilateral breasts
CPT/HCPCS: 77063; 77067

== ENCOUNTER → 2025-09-09 10:55 | Outpatient (BNVA) | payer MEDICARE, SELFPAY | PROVIDERS: PCP Family Medicine; Referring Provider Family Medicine; Visit Provider Surgery | DX: Z48.817 Encounter for surgical aftercare following surgery on the skin and subcutaneous tissue (principal); D17.1 Benign lipomatous neoplasm of skin and subcutaneous tissue of trunk | CPT/HCPCS: 99024 ==